=== PATIENT | female | born 1940 | race Two or more races ===

== ENCOUNTER 2018-08-18 12:45 | Outpatient (CLI) | payer OTHER ==
[~2018-08-18 12:45] MED LIST: AMPICILLIN TRI500 MG PO; ATIVAN2 MG PO; AVAPRO300 MG PO; CARVEDILOL3.125 MG; COREG CR10 MG PO; HYDRODIURIL12.5 MG PO; PROTONIX40 MG PO; SINGULAIR10 MG PO
== END 2018-08-18 12:55 | disposition home or self-care (01) ==
LOC: RAD 12:45
DX: Z12.31 Encounter for screening mammogram for malignant neoplasm of breast (principal); Z87.898 Personal history of other specified conditions; Z00.00 Encounter for general adult medical examination without abnormal findings

== ENCOUNTER 2018-09-05 13:03 | Outpatient (CLI) | payer OTHER | END 2018-09-05 13:11 | disposition home or self-care (01) | LOC: NUCLEAR 13:03 | DX: M89.8X0 Other specified disorders of bone, multiple sites (principal); M81.0 Age-related osteoporosis without current pathological fracture ==

== ENCOUNTER 2019-05-29 10:49 | Outpatient (CLI) | payer OTHER | END 2019-05-29 10:50 | disposition home or self-care (01) | LOC: NUCLEAR 10:49 | DX: I87.2 Venous insufficiency (chronic) (peripheral) (principal) ==

== ENCOUNTER 2019-08-11 13:42 | Emergency (ER) | payer OTHER ==
[~2019-08-11] VITALS: Ht 160 cm; Wt 77.1 kg
[2019-08-11] MEDS ORDERED: OMEPRAZOLE40 MG (14:51)
== END 2019-08-11 16:36 | disposition home or self-care (01) ==
LOC: ER 13:42
DX: I16.0 Hypertensive urgency (principal); I10 Essential (primary) hypertension

== ENCOUNTER 2019-08-12 13:46 | Emergency (ER) | payer OTHER ==
[~2019-08-12] VITALS: Ht 157.5 cm; Wt 77.1 kg
[~2019-08-12 13:46] MED LIST changes: +OMEPRAZOLE40 MG
== END 2019-08-12 15:26 | disposition home or self-care (01) ==
LOC: ER 13:46
DX: G44.209 Tension-type headache, unspecified, not intractable (principal)

== ENCOUNTER 2019-08-21 11:18 | Outpatient (CLI) | payer OTHER | END 2019-08-21 15:05 | disposition home or self-care (01) | LOC: MAMO-SONO 11:18 | DX: N64.59 Other signs and symptoms in breast (principal); R07.89 Other chest pain; Z12.31 Encounter for screening mammogram for malignant neoplasm of breast; Z87.898 Personal history of other specified conditions ==

== ENCOUNTER 2021-09-23 11:41 | Emergency (ER) | payer OTHER ==
[~2021-09-23] VITALS: Ht 152.4 cm; Wt 61.7 kg
[2021-09-23] MEDS ORDERED: NORFLEX100MG PO (13:49)
== END 2021-09-23 13:54 | disposition home or self-care (01) ==
LOC: ER 11:41
DX: S13.4XXA Sprain of ligaments of cervical spine, initial encounter (principal); S70.01XA Contusion of right hip, initial encounter; W18.39XA Other fall on same level, initial encounter; Y93.89 Activity, other specified; Y92.512 Supermarket, store or market as the place of occurrence of the external cause; Y99.8 Other external cause status

== ENCOUNTER 2022-11-24 23:37 | Emergency (ER) | payer OTHER ==
[~2022-11-24] VITALS: Ht 157.5 cm; Wt 56.7 kg
[~2022-11-24 23:37] MED LIST changes: +NORFLEX100MG PO
[2022-11-25] MEDS ORDERED: PEPCID40 MG PO (07:30)
[2022-11-25] MEDS ORDERED: ONDANSETRON ODT4 MG PO (07:30)
== END 2022-11-25 07:48 ==
LOC: ER 23:37
DX: R10.13 Epigastric pain (principal); Z88.6 Allergy status to analgesic agent; I10 Essential (primary) hypertension; Z90.49 Acquired absence of other specified parts of digestive tract

== ENCOUNTER 2024-06-19 06:29 | Emergency (ER) | payer OTHER ==
[~2024-06-19] VITALS: Ht 157.5 cm; Wt 68.0 kg
[~2024-06-19 06:29] MED LIST changes: +ONDANSETRON ODT4 MG PO; +PEPCID40 MG PO
[2024-06-19] MEDS ORDERED: COZAAR25 MG PO (06:33)
[2024-06-19] MEDS ORDERED: METOCLOPRAMIDE HCL 5 MG/ML VIAL IM STA (07:03)
[2024-06-19] MEDS ORDERED: RINGERS SOLUTION,LACTATED 1,000 ML IV STA (07:04)
[2024-06-19] MEDS ORDERED: HYOSCYAMINE SULFATE 0.125 MG TAB.SUBL SL STA (07:04)
[2024-06-19] MEDS ORDERED: FAMOtidine 10 MG/ML (4ML VIAL) IV PUSH STA (07:05)
[2024-06-19] MEDS ORDERED: HYOSCYAMINE SULFATE 0.125 MG TAB.SUBL ONE (07:16)
[2024-06-19] MEDS ORDERED: METOCLOPRAMIDE HCL 5 MG/ML VIAL ONE (07:16)
[2024-06-19] MEDS ORDERED: FAMOTIDINE/PF 20 MG/2 ML VIAL ONE (07:16)
[2024-06-19 08:25] LABS: HEMATOCRIT 33.2 % (36.0-45.00); HEMOGLOBIN 10.9 g/dL (12.0-15.00); MEAN CELL VOLUME 88.6 fL (80.00-100.00); MEAN CORPUSCULAR HEMOGLOBIN 29.2 pg (27.00-32.0); PLATELET COUNT 233 K/uL (150-450); RED BLOOD COUNT 3.74 M/uL (4.00-6.00); RED CELL DISTRIBUTION WIDTH 14.8 % (11.5-14.5)
[2024-06-19 09:14] LABS: PH,URINE 6.5 (5.0-8.0); URINE APPEARANCE Clear; URINE BILIRRUBIN Negative (NEGATIVE); URINE BLOOD Negative; URINE COLOR Yellow; URINE GLUCOSE Negative (NEGATIVE); URINE KETONE Negative (NEGATIVE); URINE LEUKOCYTE Negative; URINE NITRATE Negative; URINE PROTEIN Negative (NEGATIVE); URINE UROBILINOGEN 0.2 E.U./dl
[2024-06-19 09:21] LABS: URINE BACTERIA 20.1 uL (0.0-1933); URINE EPITHELIAL CELLS 4.4 uL (0.0-38.8); URINE WBC 7.5 uL (0.0-23.2)
[2024-06-19 09:32] LABS: URINE RBC 0.9 uL (0.0-20.8)
[2024-06-19 11:12] LABS: CALCIUM 9.3 mg/dL (8.5-10.1); GFR 53.21; POTASSIUM 4.08 mEq/L (3.5-5.1)
== END 2024-06-19 11:54 | disposition home or self-care (01) ==
LOC: ER 06:30
PROVIDERS: Emergency Medicine
DX: K52.89 Other specified noninfective gastroenteritis and colitis (principal); Z88.6 Allergy status to analgesic agent; K21.9 Gastro-esophageal reflux disease without esophagitis
CPT/HCPCS: 36415; 96365; 99282; J2765

== ENCOUNTER 2025-03-23 01:17 | Emergency (ER) | payer OTHER ==
[~2025-03-23] VITALS: Ht 157.5 cm; Wt 67.6 kg
[~2025-03-23 01:17] MED LIST changes: +COZAAR25 MG PO
[2025-03-23] MEDS ORDERED: ACETAMINOPHEN 500 MG GEL..CAP PO ONE (01:25)
[2025-03-23] MEDS ORDERED: ONDANSETRON HCL 2 MG/ML VIAL IV STA (02:49)
[2025-03-23] MEDS ORDERED: FAMOtidine 10 MG/ML (4ML VIAL) IV PUSH STA (02:49)
[2025-03-23] MEDS ORDERED: ONDANSETRON HCL 2 MG/ML VIAL ONE (02:52)
[2025-03-23] MEDS ORDERED: FAMOTIDINE/PF 20 MG/2 ML VIAL ONE (02:53)
[2025-03-23] MEDS ORDERED: HYOSCYAMINE SULFATE 0.125 MG TAB.SUBL ONE (02:53)
[2025-03-23] MEDS ORDERED: HYOSCYAMINE SULFATE 0.125 MG TAB.SUBL SL ONE (03:00)
== END 2025-03-23 04:49 | disposition home or self-care (01) ==
LOC: ER 02:57
DX: K29.70 Gastritis, unspecified, without bleeding (principal); Z88.6 Allergy status to analgesic agent

== ENCOUNTER 2025-03-31 18:45 | Emergency (ER) | payer OTHER ==
[~2025-03-31] VITALS: Ht 157.5 cm; Wt 65.8 kg
[2025-03-31] MEDS ORDERED: ATIVAN0.5 M1 PO (19:29)
[2025-03-31] MEDS ORDERED: CARVEDILOL6.25 M1 PO (19:29)
[2025-03-31] MEDS ORDERED: 0.9 % SODIUM CHLORIDE 1,000 ML IV STA (20:43)
[2025-03-31] MEDS ORDERED: ONDANSETRON HCL 2 MG/ML VIAL IV STA (20:44)
[2025-03-31] MEDS ORDERED: FAMOtidine 10 MG/ML (4ML VIAL) IV PUSH STA (20:44)
[2025-03-31] MEDS ORDERED: MORPHINE SULFATE 4 MG/ML VIAL IV STA (20:44)
[2025-03-31] MEDS ORDERED: HYOSCYAMINE SULFATE 0.125 MG TAB.SUBL SL ONE (20:45)
[2025-03-31] MEDS ORDERED: HYOSCYAMINE SULFATE 0.125 MG TAB.SUBL ONE (22:12)
[2025-03-31] MEDS ORDERED: FAMOTIDINE/PF 20 MG/2 ML VIAL ONE (22:13)
[2025-03-31] MEDS ORDERED: ONDANSETRON HCL 2 MG/ML VIAL ONE (22:19)
[2025-03-31] MEDS ORDERED: BARIUM SULFATE 450 ML ORAL.SUSP PO ONE (22:29)
[2025-03-31 23:53] LABS: BASO % 0.4 % (0.1-1.2); EOS # 0.04 (0.04-0.54); EOS % 0.8 % (0.7-7.0); HEMATOCRIT 33.4 % (34.1-44.9); HEMOGLOBIN 11.1 g/dL (11.2-15.7); LYMPH # 0.55 (1.18-3.74); LYMPH % 11.5 % (19.3-53.1); MEAN CORPUSCULAR HEMOGLOBIN 29.2 pg (25.6-32.2); MONO # 0.45 (0.24-0.82); MONO % 9.4 % (4.7-12.5); NEUT # 3.71 (1.56-6.13); NEUT % 77.7 % (34.0-71.1); PLATELET COUNT 252 K/uL (163-369); RED CELL DISTRIBUTION WIDTH 13.2 % (11.6-14.4)
[2025-03-31 23:58] LABS: PARTIAL THROMBOPLASTIN TIME 26.6 SECONDS (22.0-34.0); PROTHROMBIN TIME 10.9 SECONDS (9.0-11.5)
[2025-04-01 00:01] LABS: ALBUMIN 3.3 gm/dL (3.4-5.0); BILIRUBIN TOTAL 0.28 mg/dL (0.3-1.2); CALCIUM 8.9 mg/dL (8.5-10.1); GFR 49.09; GLOBULINA 3.6 G/DL (2.4-3.5); POTASSIUM 3.91 mEq/L (3.5-5.1); TOTAL PROTEIN 6.9 gm/dL (6.4-8.2)
[2025-04-01 00:02] LABS: CREATININE SERUM 1.07 mg/dL (0.55-1.02)
[2025-04-01] MEDS ORDERED: LEVSIN/SL0.125 MG SL (04:17)
[2025-04-01] MEDS ORDERED: CIPRO500 MG PO ×2 (04:17→04:19)
== END 2025-04-01 04:30 ==
LOC: ER 18:51
DX: K57.90 Diverticulosis of intestine, part unspecified, without perforation or abscess without bleeding (principal); I10 Essential (primary) hypertension; Z88.6 Allergy status to analgesic agent

== ENCOUNTER 2025-05-14 07:14 | Outpatient (CLI) | payer OTHER ==
[~2025-05-14 07:14] MED LIST changes: +ATIVAN0.5 M1 PO; +CARVEDILOL6.25 M1 PO; +CIPRO500 MG PO; +LEVSIN/SL0.125 MG SL
== END 2025-05-14 07:15 | disposition home or self-care (01) ==
LOC: NUCLEAR 07:14
PROVIDERS: ATTEND Internal Medicine
DX: I20.9 Angina pectoris, unspecified (principal)
CPT/HCPCS: 78452; 93017; A9500